=== PATIENT | male | born 1985 | race Hispanic/Latino ===

== ENCOUNTER 2023-06-30 20:38 | Emergency (ER) | payer SELFPAY ==
[~2023-06-30] VITALS: Ht 172.7 cm; Wt 95.0 kg
[~2023-06-30 20:38] MED LIST: NAPROSYN375 MG PO; NO HOME MEDS; ULTRAM50 MG OR
[2023-06-30 21:23] LABS: BASO% 0.1 % (0-3); EOS% 0.1 % (0-8); HEMATOCRIT 44.1 % (39.0-50.0); HEMOGLOBIN 14.9 g/dl (14.0-18.0); IMMATURE GRANULOCYTES 0.1 % (0.0-5.0); LYMPH% 8.8 % (15-41); MEAN CELL VOLUME 88.9 fL CALC (80.0-100.0); MEAN CORPUSCULAR HGB CONC 33.8 g/dL CAL (32.0-36.0); MONO% 9.8 % (2-13); NEUT# 6.38 thou/uL (1.82-7.42); NEUT% 81.1 % (42-76); RED BLOOD COUNT 4.96 mill/uL (4.70-6.10)
[2023-06-30] MEDS ORDERED: TAM75CAP PO (21:34)
[2023-06-30 21:38] VITALS: BP 145/88
== END 2023-06-30 21:46 | disposition home or self-care (01) | DRG 195 ==
LOC: ED 20:38
PROVIDERS: Family Medicine
DX: J10.1 Influenza due to other identified influenza virus with other respiratory manifestations (principal)